=== PATIENT | male | born 1985 | race Caucasian/White ===

== ENCOUNTER 2022-08-21 19:44 | Emergency (ER) | payer OTHER, SELFPAY ==
--- NOTE | ~2022-08-21 | US_ITS ---
US scrotum doppler DATE: 08/21/2022 21:31 INDICATION: Left scrotal pain for one day TECHNIQUE: Real-time and color flow imaging and Doppler analysis of the scrotal contents COMPARISON: 08/21/2022 CT abdomen pelvis FINDINGS: There is homogeneous and symmetric echotexture of the testicles. No testicular mass lesion or torsion. There is vascular flow to both testicles. Bilateral epididymal head cysts, measuring up to 5 mm on the right, 3.5 mm on the left. Bilateral varicoceles with vein diameter up to 3 mm on the right and 3.2 mm on the left no hydroceles . IMPRESSION: Bilateral epididymal head cyst Bilateral varicoceles No testicular mass lesion or torsion Reviewed, dictated and finalized at [facility] Reviewed, dictated and finalized at [facility].
--- NOTE | ~2022-08-21 | CT_ITS ---
EXAMINATION: CT abdomen pelvis wo con DATE: 08/21/2022 20:46 INDICATION: Left lower quadrant pain radiating to scrotum. Evaluate for renal calculi TECHNIQUE: Computed tomography (CT) of the abdomen and pelvis was performed without intravenous contr ast. Automated exposure control and iterative reconstruction technique were employed. Exam dose: 216 1.08 mGy-cm total exam DLP. COMPARISON: None. FINDINGS: The lung bases are clear. Normal heart size. No pericardial or pleural effusion. There is hepatic steatosis with minimal sparing adjacent to the gallbladder. No hepatic, splenic, rivas creatic, adrenal or renal space-occupying mass lesion is detected. The gallbladder is contracted. No pericholecystic fluid or fat stranding. No bile duct or pancreatic duct dilatation. No renal space occupying mass lesion or urinary tract calculus or hydroureteronephrosis. The urinary bladder and prostate gland are unremarkable. Normal caliber of the abdominal aorta. No intraperitoneal or retroperitoneal or pelvic mass lesion or adenopathy or ascites. No evidence of appendicitis. No bowel obstruction, bowel wall thickening, pneumatosis or intraperiton eal free air. Approximately 3.3 cm deep approximately 1.6 mm wide fat-containing umbilical hernia. Very small fat-c ontaining inguinal hernias, left larger than right. No suspicious osteolytic or osteoblastic lesions. Mild to moderate degenerative change of the lumbar spine. Mild degenerative change of the thoracic spine. IMPRESSION: No urinary tract calculus or hydroureteronephrosis Reviewed, dictated and finalized at [facility]. Reviewed, dictated and finalized at [facility].
[2022-08-21 19:45] VITALS: BP 146/95; PULSE 104; RESP 16; TEMP 37; O2SAT 99
--- NOTE | 2022-08-21 19:59 | ED.GENADULT ---
HPI - General Adult General Chief complaint: Urogenital-Male Stated complaint: scrotal pain, LLQ pain Time Seen by Provider: 08/21/22 19:50 History of Present Illness HPI narrative: Patient is a 37-year-old gentleman who presents the emergency department with chief complaint of a left scrotal pain. Patient reports that he started having pain in the posterior aspect of his left testicle today reports that its aching reports that he also has pain radiating to the left lower quadrant. Patient states pain is worse with movement and improved with rest patient denies blood dysuria denies flank pain but does report that he has chronic back pain. Patient denies nausea vomiting denies fever. Related Data Allergies Allergy/AdvReac Type Severity Reaction Status Date / Time No Known Allergies Allergy Verified 08/21/22 19:47 Review of Systems Review of Systems: A 10 system review of systems was completed on the patient and is negative except for what is stated in the HPI. Nursing and ancillary documentation was reviewed. PMFSH Comments Past medical history significant for chronic back pain Social history the patient is a Exam Narrative: GENERAL: Well-appearing, well-nourished, and in no acute distress. HEAD: Normocephalic, atraumatic. EYES: PERRLA and EOMI. ENT: Nares clear, no rhinorrhea or epistaxis. Mucous membranes moist. NECK: Supple. CHEST: Clear to auscultation. No respiratory distress. HEART: Regular rate and rhythm. No murmur heard. Normal peripheral pulses. ABDOMEN: Soft, mild tenderness to palpation in the left lower quadrant, nondistended, normal active bowel sounds. : Tenderness to palpation the posterior aspect of the left testicle in the area of the epididymis EXTREMITIES: Normal range of motion. No edema. SKIN: Warm, dry, no rash. NEURO: No focal deficits. Alert and oriented x3. PSYCH: Normal mood and affect. Course Vital Signs Vital signs: Vital Signs Temperature 37.0 C 08/21/22 19:45 Pulse Rate 104 H 08/21/22 19:45 Respiratory Rate 16 08/21/22 19:45 Blood Pressure 146/95 H 08/21/22 19:45 Pulse Oximetry 99 08/21/22 19:45 Temperature 37.0 C 08/21/22 19:45 Pulse Rate 104 H 08/21/22 19:45 Respiratory Rate 16 08/21/22 19:45 Blood Pressure 146/95 H 08/21/22 19:45 Pulse Oximetry 99 08/21/22 19:45 Medical Decision Making Vital Signs Vital Signs: Vital Signs Temperature 37.0 C 08/21/22 19:45 Pulse Rate 104 H 08/21/22 19:45 Respiratory Rate 16 08/21/22 19:45 Blood Pressure 146/95 H 08/21/22 19:45 Pulse Oximetry 99 08/21/22 19:45 Temperature 37.0 C 08/21/22 19:45 Pulse Rate 104 H 08/21/22 19:45 Respiratory Rate 16 08/21/22 19:45 Blood Pressure 146/95 H 08/21/22 19:45 Pulse Oximetry 99 08/21/22 19:45 Lab Data Result diagrams: 08/21/22 20:06 08/21/22 20:06 Labs: Lab Results 08/21/22 08/21/22 08/21/22 Range/Units 20:06 20:06 20:06 WBC 10.3 H (4.5-10.0) K/mm3 RBC 5.40 (4.6-6.20) M/mm3 Hgb 16.8 (14.0-18.0) g/dL Hct 48.6 (42.0-52.0) % MCV 90.0 (80-100) fl MCH 31.1 (26-34) pg MCHC 34.6 (32-36) g/dl RDW 13.2 (11.5-14.5) % Plt Count 257 (150-375) k/mm3 MPV 10.6 H (7.4-10.4) fl Immature Gran % (Auto) 0.4 (0-0.5) % Neut % (Auto) 63.7 (45.5-73.1) % Lymph % (Auto) 25.1 (18.3-44.2) % Imperial % (Auto) 9.8 H (2.6-8.5) % Eos % (Auto) 0.6 (0-4.4) % Baso % (Auto) 0.4 (0.2-1.2) % Lymph # (Auto) 2.59 (0.9-3.2) K/mm3 Imperial # (Auto) 1.0 H (0.1-0.6) K/mm3 Eos # (Auto) 0.1 (0-0.3) K/mm3 Baso # (Auto) 0.0 (0.0-0.1) K/mm3 Abs Immat Gran (auto) 0.04 H (0.00-0.031) K/mm3 Absolute Neuts (auto) 6.6 (1.3-6.7) K/mm3 Absolute Nucleated RBC 0.0 (0.0-0.012) K/mm3 Nucleated RBC % 0.0 (0.0-0.2) % Sodium (137-145) mmol/L Potassium (3.4-5.0) mmol/L Chloride (98-107) mmol/L Carbon Di
[2022-08-21] MEDS: KETOROLAC 30 MG/ML VIAL (*BKC) 15 MG IV PUSH (20:10)
[2022-08-21 20:12] LABS: Basophils Percent Auto 0.4 % (0.2-1.2); Eosinophils Absolute Auto 0.1 K/mm3 (0-0.3); Eosinophils Percent Auto 0.6 % (0-4.4); Hematocrit 48.6 % (42.0-52.0); Hemoglobin 16.8 g/dL (14.0-18.0); Immature Granulocyte Absolute 0.04 K/mm3 (0.00-0.031); Immature Granulocyte Percent A 0.4 % (0-0.5); Lymphocytes Absolute Auto 2.59 K/mm3 (0.9-3.2); Lymphocytes Percent Auto 25.1 % (18.3-44.2); Mean Corpuscular HGB Conc 34.6 g/dl (32-36); Mean Corpuscular Hemoglobin 31.1 pg (26-34); Mean Platelet Volume 10.6 fl (7.4-10.4); Monocytes Percent Auto 9.8 % (2.6-8.5); Neutrophils Absolute Auto 6.6 K/mm3 (1.3-6.7); Neutrophils Percent Auto 63.7 % (45.5-73.1); Platelet Count Result 257 k/mm3 (150-375); Red Cell Distribution Width 13.2 % (11.5-14.5); White Blood Count 10.3 K/mm3 (4.5-10.0)
[2022-08-21 20:17] LABS: Appearance Urine Cloudy (Clear); Bilirubin Urine Negative (Negative); Blood Urine Negative (Negative); Color Urine Yellow (Yellow); Glucose Urine UA Negative (Negative); Ketones Urine Negative (Negative); Leukocyte Esterase Ur Negative LEU/UL (Negative); Nitrate Urine Negative (Negative); Protein Urine Negative (Negative); Urobilinogen Urine 0.2 mg/dL (<2.0)
[2022-08-21 20:22] LABS: Alanine Aminotransferase 65 U/L (6-50); Albumin Level 4.8 g/dL (3.5-5.1); Alkaline Phosphatase 87 U/L (38-126); Anion Gap 11 mmol/L (8-16); Aspartate Amino Transferase 42 U/L (17-59); Bilirubin,Total 0.8 mg/dL (0.2-1.3); Blood Urea Nitrogen 11 mg/dL (9-20); Calcium 9.3 mg/dL (8.4-10.2); Carbon Dioxide 30 mmol/L (22-30); Chloride 102 mmol/L (98-107); Estimated CRCL calculation 110 ml/min; Estimated Glomerular Filt Rate > 60; Glucose 109 mg/dL (65-110); Potassium 3.9 mmol/L (3.4-5.0); Sodium 143 mmol/L (137-145)
[2022-08-21 20:24] LABS: Add Urine Microscopic? NO; Budding Yeast Urine Present /hpf; Mucus Urine Rare /lpf; WBC Urine 0-3 /hpf
[2022-08-21 22:36] VITALS: BP 149/95; PULSE 85; RESP 20; O2SAT 95
== END 2022-08-21 22:36 | disposition home or self-care (01) ==
PROVIDERS: Emergency Provider Emergency Medicine
DX: B37.49 Other urogenital candidiasis (principal); N50.82 Scrotal pain; N50.3 Cyst of epididymis; I86.1 Scrotal varices
CPT/HCPCS: 36415; 74176; 76870; 80053; 81003; 85025; 87491; 87591; 93976; 96374; 99284; J1885